=== PATIENT | male | born 1980 | race Caucasian/White ===

== ENCOUNTER 2017-11-15 12:53 | Emergency (ER) | payer OTHER, BC ==
--- NOTE | 2017-11-15 13:34 | EDM.PDOC ---
ED HPI GENERAL MEDICAL PROBLEM - General Stated Complaint: CUT ON LEFT HAND Time Seen by Provider: 11/15/17 13:05 Source of Information: Reports: Patient History Limitations: Reports: No Limitations - History of Present Illness INITIAL COMMENTS - FREE TEXT/NARRATIVE: c/o finger lac works for [employer], L middle finger got caught in a drill bit last Td 3y ago here with - Related Data Allergies Allergy/AdvReac Type Severity Reaction Status Date / Time Sulfa (Sulfonamide Allergy Rash Verified 11/15/17 13:58 Antibiotics) Home Meds: Home Meds Cephalexin [Keflex] 500 mg PO TID #9 capsule 11/15/17 [Rx] Fluticasone Propionate [Flonase] 2 puff CONCHIS DAILY 11/15/17 [History] Pantoprazole 20 mg PO DAILY 11/15/17 [History] traZODone HCl [Trazodone HCl] 50 mg PO BEDTIME 11/15/17 [History] ED ROS GENERAL - Review of Systems Review Of Systems: See Below Constitutional: Reports: No Symptoms HEENT: Reports: No Symptoms Respiratory: Reports: No Symptoms Cardiovascular: Reports: No Symptoms Endocrine: Reports: No Symptoms GI/Abdominal: Reports: No Symptoms : Reports: No Symptoms Musculoskeletal: Reports: No Symptoms Skin: Reports: Wound Neurological: Reports: No Symptoms Psychiatric: Reports: No Symptoms Hematologic/Lymphatic: Reports: No Symptoms Immunologic: Reports: No Symptoms ED EXAM, SKIN/RASH Exam: See Below Exam Limited By: No Limitations General Appearance: Alert, WD/WN, No Apparent Distress Extremities: Other (digit block used for L middle finger, betadaine x 9, alc prep x 6, #30 needle with 2% lido without, good analgesia, there is a 7x7 mm skin flap on a 2 mm pedicle adjacent to fingernail, some bleeding when it was examined, it is pale and will not survive however will be a good biologic dressing, there is a small epidermal injury nearby, no depth to flap, area cleaned and dressing applied) Departure - Departure Time of Disposition: 13:33 Disposition: Home, Self-Care 01 Condition: Good Clinical Impression: Skin avulsion - Discharge Information *PRESCRIPTION DRUG MONITORING PROGRAM REVIEWED*: Not Applicable *COPY OF PRESCRIPTION DRUG MONITORING REPORT IN PATIENT BETHANY: Not Applicable Prescriptions: Cephalexin [Keflex] 500 mg PO TID #9 capsule Instructions: Deep Skin Avulsion Referrals: Tim Maloney MD [Primary Care Provider] - Additional Instructions: Keep clean and dry and covered with a dressing for 5 days. The skin flap will not survive. However, allow it to fall off in 2-3 weeks when ready to do so. It will act as a biological dressing in the meantime to protect the area while new skin grows in. To decrease risk of infection, take cephalexin 500 mg 1 tab 3 times a day for 3 days. See your doctor the same day for any increase in redness, swelling, pain, warmth , fever or drainage.
== END 2017-11-15 14:20 | disposition home or self-care (01) ==
LOC: FB.ED 12:53
DX: S61.213A Laceration without foreign body of left middle finger without damage to nail, initial encounter (principal); Y99.0 Civilian activity done for income or pay; W23.1XXA Caught, crushed, jammed, or pinched between stationary objects, initial encounter; Z88.2 Allergy status to sulfonamides; Z79.899 Other long term (current) drug therapy
CPT/HCPCS: 64450; 99283

== ENCOUNTER 2024-10-23 14:33 | Emergency (ER) | payer BC ==
[2024-10-23 14:52] LABS: BASOPHILS ABSOLUTE AUTO 0.0 x10-3/uL (0.0-0.3); BASOPHILS PERCENT AUTO 0.3 % (0.3-3.8); EOSINOPHILS ABSOLUTE AUTO 0.1 x10-3/uL (0.0-0.6); EOSINOPHILS PERCENT AUTO 1.9 % (0.1-6.8); LYMPHOCYTES ABSOLUTE AUTO 1.8 x10-3/uL (0.5-4.5); LYMPHOCYTES PERCENT AUTO 24.4 % (15.8-45.3); MEAN PLATELET VOLUME 8.5 fL (6.7-11.0); MONOCYTES ABSOLUTE AUTO 0.7 x10-3/uL (0.0-1.2); MONOCYTES PERCENT AUTO 9.2 % (5.5-15.2); NEUTROPHILS ABSOLUTE AUTO 4.7 x10-3/uL (1.7-6.9); NEUTROPHILS PERCENT AUTO 64.2 % (40.3-71.8); PLATELET COUNT,PLT 272 x10(3)uL (117-477); RED BLOOD CELL COUNT 5.04 x10(6)uL (3.90-5.90); RED CELL DISTRIBUTION WIDTH 13.1 % (12.4-15.0); WHITE BLOOD CELL COUNT,WBC 7.4 x10-3/uL (3.2-10.1)
[2024-10-23] MEDS: Ondansetron 4 MG/2 ML SDV IVPUSH ONE (14:57)
[2024-10-23 14:59] LABS: BLOOD UREA NITROGEN,BUN 9 mg/dL (7-18); CARBON DIOXIDE,CO2 30 mmol/L (21-32); CHLORIDE,CL 103 mmol/L (100-110); CREATININE 1.0 mg/dL (0.70-1.30); ESTIMATED GFR 97 mL/min (>60); GLUCOSE RANDOM 106 mg/dL (80-116); POTASSIUM,K 3.5 mmol/L (3.5-5.3); SODIUM,NA 141 mmol/L (135-145)
[2024-10-23 15:05] LABS: A/G RATIO 1.3; ALANINE AMINOTRANSFERASE,ALT 87 U/L (12-36); ASPARTATE AMNIOTRANSFERASE,AST 31 IU/L (5-25); BILIRUBIN TOTAL 1.4 mg/dL (0.1-1.3); PROTEIN TOTAL,TP 7.7 g/dL (6.0-8.0)
== END 2024-10-23 15:55 | disposition home or self-care (01) ==
LOC: FB.ED 14:33
DX: E86.0 Dehydration (principal); Z88.2 Allergy status to sulfonamides; Z79.899 Other long term (current) drug therapy
CPT/HCPCS: 36415; 71045; 80053; 84484; 85025; 87798; 93005; 96361; 96374; 99285; A9270; J2405; J7030; 93010; 99284